=== PATIENT | female | born 1980 | race Caucasian/White ===

== ENCOUNTER → 2023-02-11 | Outpatient (CLI) | payer OTHER ==
[~2023-02-11] MED LIST: MULTI VITAMINS1 TAB PO; NORCO 325 MG-51 TAB PO; YASMIN 3 MG-0.01 TAB PO
== END ==
LOC: MC.RAD 07:29
DX: Z12.31 Encounter for screening mammogram for malignant neoplasm of breast (principal)

== ENCOUNTER → 2024-02-14 | Outpatient (CLI) | payer OTHER | LOC: MC.RAD 13:52 | DX: Z12.31 Encounter for screening mammogram for malignant neoplasm of breast (principal) ==